=== PATIENT | female | born 1955 ===

== ENCOUNTER 2024-03-24 10:59 | Outpatient (AMB) | payer OTHER, SELFPAY ==
--- NOTE | 2024-03-24 11:02 | A.OFFVIS_ITS ---
Vital Signs 03/24/24 11:20 Height 5 ft 4 in Weight 214 lb 4.629 oz BMI 36.8 BP 128/62 Blood Pressure Location Rt brachial Position Sitting Pulse 87 Pulse Source Pulse Oximeter Pulse Oximetry (%) 97 Oxygen Delivery Method Room Air Intake Visit Reasons: Joint Pain ? FM Intake Note: New patient presents today for consult. C/o joint pain in multiple areas. Symptoms started many years ago. Soft Boarder Required: No Accompanied by: Self / Same As Patient Allergies ciprofloxacin Allergy (Unknown, Verified 03/24/24 11:21) Unknown Iodinated Contrast Media Allergy (Unknown, Verified 03/24/24 11:21) Unknown Medication List - Last Reviewed 03/24/24 by MYLES Henderson cholecalciferol (vitamin D3) 25 mcg PO DAILY ezetimibe 10 mg PO DAILY finasteride 5 mg PO DAILY lisinopril 2.5 mg PO DAILY metformin ER 500 mg PO methenamine hippurate 1 g PO BID minoxidil 2.5 mg PO DAILY omeprazole 40 mg PO DAILY semaglutide (Ozempic) mg subcut tizanidine 4 mg PO BEDTIME HPI Comments Details: This is a 68-year-old female who presents for evaluation of diffuse pain. She states that she has had diffuse pain for decades. She has pain in her neck, shoulders, lower back, knees,. She gets intermittent pain and swelling of her fingers. She has pain on the outer aspect of her right hip, worse with walking. She is unaware of any family history of an autoimmune rheumatic disease. Denies any history of DVT/PE [facility] Medical History (Updated 03/24/24 @ 11:42 by Nicolas Moreland MD) Type 2 diabetes mellitus Obstructive sleep apnea GERD (gastroesophageal reflux disease) Hyperlipidemia Hypertension Generalized pain Surgical History History of hysterectomy, supracervical Hx of bilateral breast reduction surgery Family History Father Alzheimer disease Diabetes Depression Mother Bladder cancer Hyperlipidemia Hypertension Social History Alcohol intake: current Alcohol intake frequency: holidays/special occasions only Patient Tobacco Use Status: Never used Tobacco Review of Systems Const Reports fatigue ENT Reports dry mouth GI Reports nausea Musc Reports back pain, Reports arthralgias and Reports stiffness Skin/Breast Reports alopecia Psych Reports anxiety Endo Reports fatigue Physical Exam Vital Signs: Last Vital Signs Pulse 87 03/24/24 11:20 BP 128/62 03/24/24 11:20 Pulse Ox 97 03/24/24 11:20 Oxygen Delivery Method Room Air 03/24/24 11:20 BMI result Body Mass Index 36.8 Const General: cooperative, healthy appearing and comfortable Nutritional Appearance: obese morbidly obese Orientation/consciousness: patient oriented x3 Limitations: no limitations HEENT Head: Yes normocephalic and Yes atraumatic Mouth: moist mucous membranes Resp Effort & Inspection: normal respiratory effort and able to speak in complete sentences Auscultation: clear to auscultation bilaterally Cardio Rate: regular rate Rhythm: regular rhythm Skin General skin exam: no rashes or lesions noted Neuro General: patient oriented x3 Extrem Other: No active synovitis Few fibromyalgia tender points Positive empty can test on the right Right trochanteric bursa area tenderness with negative Jimmie's test Normal nailfold capillaroscopy Negative straight leg raise test bilaterally Assessment & Plan Assessment & Plan (1) Generalized pain: Code(s): R52 - Pain, unspecified Category: Medical Plan: This is a 68-year-old female who presents for evaluation of diffuse pain. Upon evaluation I do not see any signs suggestive of an autoimmune rheumatic disease. Clinical picture rather consistent with generalized osteoarthritis fibromyalgia Discussed management of fibromyalgia with patient. Is a noninflammatory, non- autoimmune central afferent processing disorder leading to a diffuse pain syndrome. Patient has history of anxiety and depression. I suggested evaluation by a therapist/psychiatrist. Patient uses her CPAP regularly. Advised patient to continue with that. Try to follow sleep hygiene practices. Patient would benefit from increased physical activity, either through formal physical therapy or by joining a gym. Advised patient that she should start activity slowly and increase as tolerated. Consider low-impact exercises such as walking, swimming, aqua therapy stretching, yoga. Follow-up with PCP (2) Greater trochanteric bursitis of right hip: Code(s): M70.61 - Trochanteric bursitis, right hip Category: Medical Plan: I provided patient with a printout of home exercises. Plan I spent 30 minutes reviewing patient's chart, evaluating patient, ordering diagnostic workup, counseling patient and documenting in the chart Coding Level of Care Code New Pt Level 3 (28786) Diagnoses Generalized pain R52 Greater trochanteric bursitis of right hip M70.61
[2024-03-24 11:20] VITALS: BP 128/62; PULSE 87; O2SAT 97; BMI 36.8
== END 2024-03-24 11:36 | disposition home or self-care (01) ==
PROVIDERS: PCP Internal Medicine; Visit Provider Student in an Organized Health Care Education/Training Program
DX: R52 Pain, unspecified (principal); M70.61 Trochanteric bursitis, right hip
CPT/HCPCS: 99203

== ENCOUNTER → 2024-03-24 10:59 | Outpatient (BNVA) | payer OTHER, SELFPAY | PROVIDERS: PCP Internal Medicine; Visit Provider Student in an Organized Health Care Education/Training Program ==